=== PATIENT | female | born 1940 | race African-American/Black ===

== ENCOUNTER 2021-08-08 07:45 | Emergency (ER) | payer OTHER ==
[~2021-08-08] VITALS: Ht 165.1 cm; Wt 75.0 kg
[2021-08-08] MEDS ORDERED: IBUPROFEN 400MG TABLET PO SCH (11:00)
[2021-08-08] MEDS ORDERED: ACETAMINOPHEN 325MG TABLET PO SCH (11:00)
[2021-08-08 12:10] VITALS: BP 148/87
== END 2021-08-08 12:12 | disposition home or self-care (01) ==
LOC: ER 08:14
DX: S80.01XA Contusion of right knee, initial encounter (principal); I10 Essential (primary) hypertension; E11.9 Type 2 diabetes mellitus without complications; E78.00 Pure hypercholesterolemia, unspecified; F32.A Depression, unspecified; Z88.8 Allergy status to other drugs, medicaments and biological substances; W01.0XXA Fall on same level from slipping, tripping and stumbling without subsequent striking against object, initial encounter; Y93.89 Activity, other specified; Y92.018 Other place in single-family (private) house as the place of occurrence of the external cause
CPT/HCPCS: 73560; 99283